=== PATIENT | female | born 1975 | race Caucasian/White ===

== ENCOUNTER 2017-11-30 12:43 | Emergency (ER) | payer BC ==
[2017-11-30] MEDS ORDERED: HYDROMORPHONE HCL INJ/PF 2 MG/ML AMPULE IV ONE (12:51)
[2017-11-30] MEDS ORDERED: HYDROMORPHONE HCL INJ/PF 2 MG/ML AMPULE ONE (12:54)
--- NOTE | 2017-11-30 13:56 | RADIOLOGY REPORT (SQ) ---
EXAM DESCRIPTION: ANKLE RIGHT COMPLETE COMPLETED DATE/TIME: 11/30/2017 1:46 pm REASON FOR STUDY: 14Hw, fall COMPARISON: None. NUMBER OF VIEWS: Three views. TECHNIQUE: AP, lateral, and oblique radiographic images acquired of the right ankle. LIMITATIONS: None. FINDINGS: MINERALIZATION: Normal. BONES: No acute fracture or dislocation. No worrisome bone lesions. JOINTS: No effusions. SOFT TISSUES: No soft tissue swelling. No foreign body. OTHER: No other significant finding. IMPRESSION: NEGATIVE STUDY OF THE RIGHT ANKLE. NO RADIOGRAPHIC EVIDENCE OF ACUTE INJURY. TECHNICAL DOCUMENTATION: JOB ID: [id number] [employer]- All Rights Reserved Reading location - IP/workstation name: [email or web address]
--- NOTE | 2017-11-30 13:57 | RADIOLOGY REPORT (SQ) ---
EXAM DESCRIPTION: FOOT RIGHT COMPLETE COMPLETED DATE/TIME: 11/30/2017 1:46 pm REASON FOR STUDY: 13Hw, fall COMPARISON: None. NUMBER OF VIEWS: Three views. TECHNIQUE: AP, lateral and oblique radiographic images acquired of the right foot. LIMITATIONS: None. FINDINGS: MINERALIZATION: Normal. BONES: No acute fracture or dislocation. No worrisome bone lesions. JOINTS: Mild hallux valgus is identified. SOFT TISSUES: No soft tissue swelling. No foreign body. OTHER: No other significant finding. IMPRESSION: NEGATIVE STUDY OF THE RIGHT FOOT. NO RADIOGRAPHIC EVIDENCE OF ACUTE INJURY. TECHNICAL DOCUMENTATION: JOB ID: [id number] [employer]- All Rights Reserved Reading location - IP/workstation name: [email or web address]
--- NOTE | 2017-11-30 14:16 | ER Document Report ---
ED Fall - General Chief Complaint: Fall Injury Stated Complaint: RIGHT ANKLE PAIN Time Seen by Provider: 11/30/17 12:51 Notes: Patient is a 42-year-old female that was on the third step of a ladder when she fell twisting her right ankle. She denies any head trauma. She denies any pain or injury to any other location of her body. Patient was splinted by EMS and provided pain medications. EMS provided pain medications. - HPI Occurred: Just prior to arrival Where: Indoors Context: Slipped, Lost balance Associated symptoms: None Location of injury/pain: Other - See above Quality of pain: Achy Severity: Moderate Pain Level: 3 Prehospital interventions: No: C-collar, Backboard Past Medical History - General Information source: Patient - Social History Smoking Status: Unknown if Ever Smoked Cigarette use (# per day): No Chew tobacco use (# tins/day): No Smoking Education Provided: No Frequency of alcohol use: None Family History: Reviewed & Not Pertinent Review of Systems - Review of Systems Cardiovascular: denies: Chest pain, Palpitations Respiratory: denies: Cough, Hurts to breathe Gastrointestinal: denies: Abdominal pain Genitourinary: denies: Dysuria Musculoskeletal: denies: Back pain -: Yes All other systems reviewed and negative Physical Exam - Vital signs Vitals: Temp Pulse Resp BP Pulse Ox 97.3 F 82 16 122/65 100 11/30/17 13:00 11/30/17 13:00 11/30/17 13:00 11/30/17 13:00 11/30/17 13:00 Notes: Reviewed vital signs and nursing note as charted by RN. CONSTITUTIONAL: Alert and oriented and responds appropriately to questions. Well -appearing; well-nourished HEAD: Normocephalic; atraumatic NECK: Supple without meningismus; non-tender CARD: Regular rate and rhythm; no murmurs RESP: Normal chest excursion without splinting or tachypnea; breath sounds clear and equal bilaterally ABD/GI: Normal bowel sounds; non-distended; soft, non-tender BACK: The back appears normal and is non-tender to palpation EXT: She has some pain and swelling to the right lateral malleolus. There is a pinpoint area of dried blood to the right lateral malleolus. Patient has no proximal tibia/fibular tenderness SKIN: See above NEURO: CN II through XII are intact. Moves all extremities equally; Motor and sensory function intact PSYCH: The patient's mood and manner are appropriate. Grooming and personal hygiene are appropriate. Course - Re-evaluation Re-evalutation: Given the above history and physical examination I will order an x-ray of the right foot and ankle. I do not believe any other imaging or laboratory work is necessary at this moment. 11/30/17 14:16 X-ray of the foot and ankle as recorded. 11/30/17 15:10 We have cleaned the wound area and I do not see an obvious puncture wound. It does appear to be more like an abrasion. I have called directly and spoken directly to Dr. Pineda, the orthopedic surgeon. I have explained the full history and physical examination. He does not believe any more imaging or care needs to be performed at this time other than irrigation, wound care, and possibly prophylactic antibiotics. I will provide Keflex. The patient's tetanus is up-to-date. We will clean and irrigate the small abrasion like lesion copiously and then place the patient in a dressing and a splint. Strict return precautions will be provided and the patient will be instructed to follow -up with orthopedics. - Vital Signs Vital signs: Temp Pulse Resp BP Pulse Ox 97.3 F 82 16 122/65 100 11/30/17 13:00 11/30/17 13:00 11/30/17 13:00 11/30/17 13:00 11/30/17 13:00 Discharge - Discharge Clinical Impression: Abrasion, right ankle, initial encounter Right ankle sprain Qualifiers: Encounter type: initial encounter Involved ligament of ankle: other ligament Qualified Code(s): S93.491A - Sprain of other ligament of right ankle, initial encounter Condition: Good Disposition: HOME, SELF-CARE Instructions: Ice Packs ([facility]), Splint Precautions ([facility]), Sprained Ankle ([facility]) Additional Instructions: Come back immediately for any increased pain, discharge or swelling or redness around the wound, fevers or vomiting, discoloration of the foot or ankle, or any other acute problems. These make sure that she follow-up with the orthopedics as we have discussed and keep the area clean and dry and apply bacitracin to the wound twice daily. Prescriptions: Cephalexin Monohydrate [Keflex 500 mg Capsule] 500 mg PO Q6H 5 Days capsule Hydrocodone/Acetaminophen [[place] 5-325 Tablet] 1 each PO Q6 PRN #12 tablet PRN Reason: For Pain Referrals: ALFREDO TURPIN MD [ACTIVE STAFF] - Follow up as needed
[2017-11-30] MEDS ORDERED: BACITRACIN ZINC OINTMENT 15 GM TP ONE (15:13)
[2017-11-30] MEDS ORDERED: CEPHALEXIN 500 MG CAPSULE PO ONE (15:14)
[2017-11-30 15:59] VITALS: BP 106/57
== END 2017-11-30 16:00 | disposition home or self-care (01) ==
LOC: ER 12:43
PROC: 2W3QX1Z Immobilization of Right Lower Leg using Splint (ICD-10-PCS; principal; 2017-11-30)
DX: M25.571 Pain in right ankle and joints of right foot (principal); S93.491A Sprain of other ligament of right ankle, initial encounter; W11.XXXA Fall on and from ladder, initial encounter
CPT/HCPCS: 99284; 73610; 73630; 29515; J1170; J3490